=== PATIENT | female | born 1955 | race Caucasian/White ===

== ENCOUNTER 2021-04-02 16:39 | Emergency (ER) | payer MEDICARE, MEDICAID ==
[~2021-04-02] VITALS: Ht 157.5 cm; Wt 135.0 kg
[2021-04-02 16:46] VITALS: BP 162/102
[2021-04-02] MEDS ORDERED: KETOROLAC 30 MG/1 ML ONE (17:20)
[2021-04-02] MEDS ORDERED: OXYcodone/APAP 5/325MG TABLET ONE (17:20)
[2021-04-02] MEDS ORDERED: OXYcodone/APAP 5/325MG TABLET PO ONE (17:30)
[2021-04-02] MEDS ORDERED: KETOROLAC 30 MG/1 ML IM ONE (17:30)
[2021-04-02] MEDS ORDERED: PROPOFOL 10 MG/ML, 20ML ONE (18:49)
--- NOTE | 2021-04-02 19:54 | NUR ---
LEFT WRIST REDUCTION COMPLETED. PT TOLERATED WELL. SEE PRINTOUT FOR VITALS
== END 2021-04-02 21:04 | disposition home or self-care (01) ==
LOC: ED 16:50
DX: S52.502A Unspecified fracture of the lower end of left radius, initial encounter for closed fracture (principal); S52.602A Unspecified fracture of lower end of left ulna, initial encounter for closed fracture; W01.0XXA Fall on same level from slipping, tripping and stumbling without subsequent striking against object, initial encounter; Y93.89 Activity, other specified; Y92.830 Public park as the place of occurrence of the external cause; Y99.8 Other external cause status
CPT/HCPCS: 25605; 73100; 73110; 96372; 99285; J1885